=== PATIENT | male | born 1970 | race Caucasian/White ===

== ENCOUNTER 2018-05-08 16:06 | Emergency (ER) | payer OTHER ==
[~2018-05-08] VITALS: Ht 177.8 cm; Wt 86.2 kg
[~2018-05-08 16:06] MED LIST: ACETAMINOPHEN-1 EAC1 PO; NAPROSYN500 MG PO
[2018-05-08] MEDS ORDERED: PENICILLIN VK500 MG PO (16:20)
[2018-05-08] MEDS ORDERED: NORCO 5-325 TA1 EAC1 PO (16:20)
[2018-05-08 16:29] VITALS: BP 122/82
== END 2018-05-08 16:29 | disposition home or self-care (01) ==
LOC: M.ERS 16:06
DX: K04.7 Periapical abscess without sinus (principal)

== ENCOUNTER 2018-05-16 15:39 | Emergency (ER) | payer OTHER ==
[~2018-05-16] VITALS: Ht 177.8 cm; Wt 87.5 kg
[~2018-05-16 15:39] MED LIST changes: +NORCO 5-325 TA1 EAC1 PO; +PENICILLIN VK500 MG PO
[2018-05-16] MEDS ORDERED: CLEOCIN HCL150 MG PO (16:20)
[2018-05-16 16:36] VITALS: BP 103/54
== END 2018-05-16 16:36 | disposition home or self-care (01) ==
LOC: M.ERS 15:39
DX: K04.7 Periapical abscess without sinus (principal)

== ENCOUNTER 2018-06-17 10:58 | Emergency (ER) | payer OTHER ==
[~2018-06-17] VITALS: Ht 177.8 cm; Wt 86.2 kg
[~2018-06-17 10:58] MED LIST changes: +CLEOCIN HCL150 MG PO
[2018-06-17] MEDS ORDERED: CLINDAMYCIN HC150 MG PO (11:44)
[2018-06-17 11:55] VITALS: BP 112/76
== END 2018-06-17 11:55 | disposition home or self-care (01) ==
LOC: M.ERS 10:58
DX: K04.7 Periapical abscess without sinus (principal)

== ENCOUNTER 2018-08-01 14:30 | Emergency (ER) | payer OTHER ==
[~2018-08-01] VITALS: Ht 177.8 cm; Wt 86.2 kg
[~2018-08-01 14:30] MED LIST changes: +CLINDAMYCIN HC150 MG PO
[2018-08-01] MEDS ORDERED: MAGIC MOUTHWASH SWISH&SPIT (16:07)
[2018-08-01] MEDS ORDERED: NORCO 5-325 TA1 EACH PO (16:07)
[2018-08-01] MEDS ORDERED: ZOVIRAX400 MG PO (16:07)
[2018-08-01] MEDS ORDERED: PREDNISONE 10 M10 MG PO (16:07)
[2018-08-01 16:28] VITALS: BP 120/74
== END 2018-08-01 16:29 | disposition home or self-care (01) ==
LOC: M.ERS 14:30
DX: K05.10 Chronic gingivitis, plaque induced (principal); K14.0 Glossitis

== ENCOUNTER 2019-12-20 11:38 | Emergency (ER) | payer OTHER ==
[~2019-12-20] VITALS: Ht 177.8 cm; Wt 90.7 kg
[~2019-12-20 11:38] MED LIST changes: +MAGIC MOUTHWASH SWISH&SPIT; +NORCO 5-325 TA1 EACH PO; +PREDNISONE 10 M10 MG PO; +ZOVIRAX400 MG PO
[2019-12-20 12:19] LABS: INFLUENZA A ANTIGEN Negative (Negative); INFLUENZA B ANTIGEN Negative (Negative)
[2019-12-20] MEDS ORDERED: MEDROLDOSEPACK PO (12:36)
[2019-12-20] MEDS ORDERED: ZPAK PO (12:36)
[2019-12-20] MEDS ORDERED: TESSALON PERLE100 MG PO (12:36)
[2019-12-20] MEDS ORDERED: PROAIR HFA8.5 GM INH (12:36)
[2019-12-20 12:50] VITALS: BP 132/67
== END 2019-12-20 12:50 | disposition home or self-care (01) ==
LOC: M.ERS 11:38
PROVIDERS: Family Medicine
DX: J20.9 Acute bronchitis, unspecified (principal)